=== PATIENT | male | born 1970 | race Caucasian/White ===

== ENCOUNTER 2019-12-26 13:58 | Inpatient (IN) | payer OTHER ==
[~2019-12-26] VITALS: Ht 177.8 cm; Wt 81.6 kg
[2019-12-26] MEDS ORDERED: ONDANSETRON HCL INJ 2MG/ML 2ML 2 MG/ML VIAL IV STA (14:26)
[2019-12-26] MEDS ORDERED: SODIUM CHLORIDE 0.9% 1000ML 1,000 ML IV STA (14:26)
[2019-12-26] MEDS ORDERED: KETOROLAC TROMETHAMINE 30 MG/ML VIAL IV STA (14:26)
[2019-12-26 14:51] LABS: BASOPHILS # (AUTO) 0.1 (0.0-0.1); BASOPHILS % 0.3 % (0.0-1.0); EOSINOPHILS % 0.1 % (0.0-6.0); HEMATOCRIT 46.5 % (38.2-49.6); HEMOGLOBIN 16.2 g/dL (14.0-18.0); LYMPHOCYTES # (AUTO) 1.6 (1.0-3.2); LYMPHOCYTES % 10.8 % (18.0-39.1); MEAN CORPUSCULAR HEMOGLOBIN 30.1 pg (28-32); MEAN CORPUSCULAR HGB CONC 34.8 g/dL (31-35); MEAN CORPUSCULAR VOLUME 86.4 fL (81-99); MONOCYTES # (AUTO) 0.8 (0.2-0.8); MONOCYTES % 5.8 % (4.4-11.3); NEUTROPHILS # (AUTO) 11.9 (2.1-6.9); NEUTROPHILS % 82.5 % (38.7-80.0); PLATELET COUNT 291 x10e3/uL (140-360); RED BLOOD COUNT 5.38 x10e6/uL (4.3-5.7); RED CELL DISTRIBUTION WIDTH 12.9 % (11.7-14.4)
[2019-12-26 15:04] LABS: CLARITY,URINE CLEAR (CLEAR); COLOR,URINE YELLOW (YELLOW); LEUKOCYTE ESTERASE ,URINE NEGATIVE (NEGATIVE); NITRITE,URINE NEGATIVE (NEGATIVE); PROTEIN,URINE DIPSTICK TRACE (NEGATIVE)
[2019-12-26 15:05] LABS: BILIRUBIN,URINE NEGATIVE (NEGATIVE); KETONES,URINE TRACE (NEGATIVE); URINE UROBILINOGEN 0.2 mg/dL (0.2 - 1)
[2019-12-26 15:08] LABS: ALANINE AMINOTRANSFERASE 57 IU/L (0-55); ALBUMIN 4.3 g/dL (3.5-5.0); ALBUMIN/GLOBULIN RATIO 1.3 (0.8-2.0); ALKALINE PHOSPHATASE 74 IU/L (40-150); ANION GAP 17.7 mmol/L (8-16); BLOOD UREA NITROGEN 18 mg/dL (7-26); BUN/CREATININE RATIO 15 (6-25); CALCIUM 9.3 mg/dL (8.4-10.2); CARBON DIOXIDE 21 mmol/L (22-29); CHLORIDE 101 mmol/L (98-107); CREATININE, SERUM 1.22 mg/dL (0.72-1.25); EST GLOMERULAR FILTRATION RATE > 60 ML/MIN (60-); GLUCOSE 122 mg/dL (74-118); POTASSIUM 3.7 mmol/L (3.5-5.1); SODIUM 136 mmol/L (136-145)
--- NOTE | 2019-12-26 15:15 | Diagnostic Imaging Report ---
EXAMINATION: CT of the abdomen and pelvis without contrast. TECHNIQUE: Helical CT images of the abdomen and pelvis were performed from the lung bases to the lesser trochanters. No intravenous contrast was given per renal stone protocol. Coronal and sagittal reformatted images were obtained.Dose modulation, iterative reconstruction, and/or weight based adjustment of the mA/kV was utilized to reduce the radiation dose to as low as reasonably achievable. COMPARISON: None. CLINICAL HISTORY:Flank pain, evaluate for stone DISCUSSION: ABSENCE OF INTRAVENOUS CONTRAST DECREASES SENSITIVITY FOR DETECTION OF FOCAL LESIONS AND VASCULAR PATHOLOGY. ABDOMEN/PELVIS: LOWER THORAX: Unremarkable. HEPATOBILIARY:No focal hepatic lesions. No biliary ductal dilation. The gallbladder is normal. SPLEEN: No splenomegaly. PANCREAS: No focal masses or ductal dilatation. ADRENALS: No adrenal nodules. KIDNEYS/URETERS: 6 mm calculus in the mid right ureter causing moderate hydronephrosis. Left kidney unremarkable. PELVIC ORGANS/BLADDER: The bladder is normal. PERITONEUM/RETROPERITONEUM: No free air or fluid. LYMPH NODES: No intra-abdominal,retroperitoneal, pelvic or inguinal lymphadenopathy. VESSELS: Limited evaluation. GI TRACT: No distention or wall thickening. Appendix is normal. BONES AND SOFT TISSUES: No bony destructive lesions. No soft tissue abnormalities. IMPRESSION: 6 mm calculus in the mid right ureter causing moderate hydronephrosis. Signed by: Dr. Federico Dooley M.D. on 12/26/2019 3:12 PM
[2019-12-26 15:26] LABS: BACTERIA,URINE FEW /HPF; EPITHELIAL CELLS,URINE FEW /LPF; RBC,URINE 21-50 /HPF (0-5); WBC,URINE (MAN) 21-50 /HPF (0-5)
[2019-12-26] MEDS: CEFTRIAXONE SOD 1 GM/NS 50 ML 50 ML IV SCH (16:14)
--- NOTE | 2019-12-26 16:19 | NUR ---
warm blanket provided for patient
[2019-12-26] MEDS: MORPHINE SULFATE 2 MG/ML SYR 1ML IV PRN ×3 (16:27→23:46)
--- OUTSIDE RECORDS SUMMARY | 2019-12-26 16:38 | XMS REPORT ---
[facility] Address Unknown Phone Unavailable Care Team Providers Care Business Support Liaison Name Role Phone Brandie GRAHAM Unavailable Unavailable Problems This patient has no known problems. Allergies, Adverse Reactions, Alerts This patient has no known allergies or adverse reactions. Medications This patient has no known medications. Results Test Description Test Time Test Comments Text Results Atomic Results Result Comments CT ABDOMEN/PELVIS WO 2019-12-26 15:04:00 [place] [address] Patient Name: MAXIME JACOB MR #: [id number] : 1970 Age/Sex: 49/M Req #: [id number] Adm Physician: Ordered by: KENDRA QUIROZ MORPHOLOGY TEACHER Report #: [id number] Location: ER Room/Bed: Procedure: [id number] CT/CT ABDOMEN/PELVIS WO Exam Date: 12/26/19 Exam Time: 1420 REPORT STATUS: Signed EXAMINATION: CT of the abdomen and pelvis without contr ast. TECHNIQUE: Helical CT images of the abdomen and pelvis were performed from the lung bases to the lesser trochanters. No intravenous contrast was given per renal stone protocol. Coronal and sagittal reformatted images were obtained.Dose modulation, iterative reconstruction, and/or weight based adjustment of the mA/kV was utilized to reduce the radiation dose to as low as reasonably achievable. COMPARISON: None. CLINICAL HISTORY:Flank pain, evaluate for stone DISCUSSION: ABSENCE OF INTRAVENOUS CONTRAST DECREASES SENSITIVITY FOR DETECTION OF FOCAL LESIONS AND VASCULAR PATHOLOGY. ABDOMEN/PELVIS: LOWER THORAX: Unremarkable. HEPATOBILIARY:No focal hepatic lesions. No biliary ductal dilation. The gallbladder is normal. SPLEEN: No splenomegaly. PANCREAS: No focal masses or ductal dilatation. ADRENALS: No adrenal nodules. KIDNEYS/URETERS: 6 mm calculus in the mid right ureter causing moderate hydronephrosis. Left kidney unremarkable. PELVIC ORGANS/BLADDER: The bladder is normal. PERITONEUM/RETROPERITONEUM: No free air or fluid. LYMPH NODES: No intra-abdominal,retroperitoneal, pelvic or inguinal lymphadenopathy. VESSELS: Limited evaluation. GI TRACT: No distention or wall thickening. Appendix is normal. BONES AND SOFT TISSUES: No bony destructive lesions. No soft tissue abnormalities. IMPRESSION: 6 mm calculus in the mid right ureter causing moderate hydronephrosis. Signed by: Dr. Tio Mast M.D. on 12/26/2019 3:12 PM Dictated By: TIO MAST MD 1512 Transcribed By: SANDY on 12/26/19 1512 COPY TO: KENDRA QUIROZ NP
[2019-12-26] MEDS: SODIUM CHLORIDE 0.9% 1000ML 1,000 ML IV SCH (18:00)
[2019-12-26] MEDS ORDERED: HYDRALAZINE HCL 20 MG/ML VIAL IV PRN (19:00)
[2019-12-26] MEDS ORDERED: ACETAMINOPHEN 325 MG TAB PO PRN (19:00)
--- NOTE | 2019-12-26 19:03 | NUR ---
report given to Kaylah NOLASCO
[2019-12-26] MEDS ORDERED: AMLODIPINE BESY10 MG PO (20:25)
[2019-12-26] MEDS ORDERED: LISINOPRIL10 MG PO (20:26)
[2019-12-26] MEDS: ONDANSETRON HCL INJ 2MG/ML 2ML 2 MG/ML VIAL IV PRN (20:41)
[2019-12-26 21:06] VITALS: BP 149/86
[2019-12-26] MEDS ORDERED: LORAZEPAM 1 MG TAB PO PRN (21:15)
[2019-12-26 21:22] VITALS: BP 149/86
[2019-12-26 21:29] VITALS: BP 149/86
[2019-12-26 21:32] VITALS: BP 149/86
--- NOTE | 2019-12-26 21:37 | NUR ---
PATIENT AND GIRLFRIEND STATE PATIENT IS A DAILY DRINKER HAVING ANYWHERE FROM 4-6 DRINKS EVERY NIGHT MINIMUM. CALLED DR. BIRD LIFE TEACHER FOR ORDER IN CASE OF WITHDRAWLS, ORDERED ATIVAN FOR PATIENT. WILL CONTINUE TO MONITOR.
[2019-12-27] VITALS (10 sets, daily range): BP systolic 117–138; BP diastolic 70–86
[2019-12-27] MEDS: SODIUM CHLORIDE 0.9% 1000ML 1,000 ML IV SCH ×2 (02:43→16:48)
[2019-12-27] MEDS: CEFTRIAXONE SOD 1 GM/NS 50 ML 50 ML IV SCH ×2 (04:14→15:47)
[2019-12-27 05:36] LABS: BASOPHILS # (AUTO) 0.1 (0.0-0.1); BASOPHILS % 0.6 % (0.0-1.0); EOSINOPHILS # (AUTO) 0.2 (0.0-0.4); EOSINOPHILS % 1.9 % (0.0-6.0); HEMATOCRIT 40.8 % (38.2-49.6); HEMOGLOBIN 14.1 g/dL (14.0-18.0); LYMPHOCYTES # (AUTO) 2.3 (1.0-3.2); LYMPHOCYTES % 27.7 % (18.0-39.1); MEAN CORPUSCULAR HGB CONC 34.6 g/dL (31-35); MEAN CORPUSCULAR VOLUME 86.8 fL (81-99); MONOCYTES % 11.4 % (4.4-11.3); NEUTROPHILS # (AUTO) 4.9 (2.1-6.9); PLATELET COUNT 242 x10e3/uL (140-360); RED CELL DISTRIBUTION WIDTH 12.8 % (11.7-14.4)
[2019-12-27 06:00] LABS: ALANINE AMINOTRANSFERASE 41 IU/L (0-55); ALBUMIN 3.5 g/dL (3.5-5.0); ALBUMIN/GLOBULIN RATIO 1.3 (0.8-2.0); ALKALINE PHOSPHATASE 62 IU/L (40-150); ANION GAP 14.7 mmol/L (8-16); BLOOD UREA NITROGEN 12 mg/dL (7-26); BUN/CREATININE RATIO 12 (6-25); CALCIUM 8.3 mg/dL (8.4-10.2); CARBON DIOXIDE 24 mmol/L (22-29); CHLORIDE 103 mmol/L (98-107); CREATININE, SERUM 1.03 mg/dL (0.72-1.25); EST GLOMERULAR FILTRATION RATE > 60 ML/MIN (60-); GLUCOSE 107 mg/dL (74-118); POTASSIUM 3.7 mmol/L (3.5-5.1); SODIUM 138 mmol/L (136-145)
--- NOTE | 2019-12-27 06:25 | Diagnostic Imaging Report ---
EXAM: ABDOMEN-1VIEW (KUB), DATE: 12/27/2019 INDICATION: 6 mm right ureteral stone. COMPARISON: None. Correlation with CT abdomen pelvis dated 12/26/2019. FINDINGS: LINES/TUBES: None BOWEL PATTERN: No evidence for obstruction. SOFT TISSUES: 6 mm calculus projected in expected location of the mid right ureter is unchanged in position. Phleboliths projected on the pelvis. LUNG BASES: Clear. BONES: No acute findings. IMPRESSION:6 mm calculus projected in expected location of the mid right ureter is unchanged in position. Signed by: Dr. Cherelle Bruce M.D. on 12/27/2019 6:23 AM
[2019-12-27] MEDS: LISINOPRIL 10 MG TAB PO SCH (08:11)
[2019-12-27] MEDS: MORPHINE SULFATE 2 MG/ML SYR 1ML IV PRN ×2 (12:53→19:18)
[2019-12-27] MEDS: ONDANSETRON HCL INJ 2MG/ML 2ML 2 MG/ML VIAL IV PRN ×2 (12:53→19:18)
[2019-12-27] MEDS: AMLODIPINE BESYLATE 10 MG TAB PO SCH (16:48)
--- NOTE | 2019-12-27 18:45 | NUR ---
Received patient from day nurse, patient is stable at this time. safety and fall precautions maintained as per hospital protocol: bed in lowest position and locked, needed items beside bed and patient instructed to call at all times for help.Urine straining ongoing, patient on fluids.
--- NOTE | 2019-12-27 21:34 | Consultation ---
DATE OF CONSULTATION: 12/27/2019 Urology Consultation. REASON FOR CONSULTATION: Obstructive uropathy. HISTORY OF PRESENT ILLNESS: Lincoln Palacios is a 49-year-old man with no previous urological history. He was noted to have microscopic hematuria back in September on an employment physical. He went to his physician and he underwent ultrasound examination, which revealed nothing. Urological consultation was not evaluated at that time. The patient had severe right-sided flank pain, reported to the emergency room where he was evaluated and found to have obstructive uropathy and was subsequently admitted. The patient denies any dysuria and denies any fever. PAST MEDICAL AND SURGICAL HISTORY: Hypertension. ALLERGIES: NONE KNOWN. CURRENT MEDICATIONS: Please refer to the MAR. SOCIAL HISTORY: The patient smokes one cigarette per day. Denies ethanol and drug use. 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 FAMILY HISTORY: Noncontributory to the active urological problems. REVIEW OF SYSTEMS: Discussed as above in history of present illness, past medical history otherwise negative for all systems. PHYSICAL EXAMINATION: GENERAL: Healthy-appearing 49-year-old man lying in bed, no apparent distress. VITAL SIGNS: He is currently afebrile. Vital signs are currently stable. ABDOMEN: Soft, nondistended, slightly tender in the right flank with mild right-sided costovertebral angle tenderness. Kidneys not palpable without hepatosplenomegaly. No obvious evidence of hernia. GENITOURINARY: Testes descended bilaterally. Testes and epididymides bilaterally palpably normal. The patient has a normal uncircumcised male phallus with a normal meatus without any lesion. Digital rectal examination is deferred at the present time. For the remaining physical examination systems, please refer to the history and physical on the chart. LABORATORY STUDIES: White blood cell count is 8450, it was as high as 14,420, hemoglobin 14.1, platelets 242,000. The patient's creatinine is 1.03. His calcium is low at 8.3. Urinalysis significant for 21 to 50 RBCs, 21 to 50 WBCs and few bacteria. CT scan of the abdomen and pelvis was done as a stone protocol, that reveals a 6 mm right mid ureteral stone with hydroureteronephrosis. ASSESSMENT: 1. Microscopic hematuria. 2. Right renal colic. 3. Leukocytosis that improved. 4. Hypocalcemia. 5. Possible urinary tract infection. 6. Right ureterolithiasis. 7. Right hydroureteronephrosis due to stone. PLAN: 1. Straining the urine. 2. Intravenous fluids. 3. Stone passage trial. 4. Should the patient fail to pass his stone intervention may be warranted. Should the patient's stone be low enough, a ureteroscopic intervention could be pursued rather than the stenting alone. Thank you much for involving us in care of your patient. We will be happy to follow along with you as well an outpatient. Chavo Sandhu MD [place]/MODL /[id number] cc: Chavo Sandhu MD
[2019-12-28] VITALS (8 sets, daily range): BP systolic 113–140; BP diastolic 61–93
[2019-12-28] MEDS: SODIUM CHLORIDE 0.9% 1000ML 1,000 ML IV SCH ×3 (00:06→16:30)
[2019-12-28] MEDS: MORPHINE SULFATE 2 MG/ML SYR 1ML IV PRN ×6 (00:07→23:52)
[2019-12-28 04:39] LABS: BASOPHILS # (AUTO) 0.1 (0.0-0.1); BASOPHILS % 0.8 % (0.0-1.0); EOSINOPHILS # (AUTO) 0.3 (0.0-0.4); EOSINOPHILS % 4.1 % (0.0-6.0); HEMATOCRIT 41.9 % (38.2-49.6); HEMOGLOBIN 14.2 g/dL (14.0-18.0); LYMPHOCYTES # (AUTO) 2.3 (1.0-3.2); MEAN CORPUSCULAR HEMOGLOBIN 30.1 pg (28-32); MEAN CORPUSCULAR HGB CONC 33.9 g/dL (31-35); MONOCYTES # (AUTO) 0.7 (0.2-0.8); MONOCYTES % 11.1 % (4.4-11.3); NEUTROPHILS # (AUTO) 3.3 (2.1-6.9); NEUTROPHILS % 49.4 % (38.7-80.0); PLATELET COUNT 241 x10e3/uL (140-360); RED BLOOD COUNT 4.71 x10e6/uL (4.3-5.7)
[2019-12-28] MEDS: CEFTRIAXONE SOD 1 GM/NS 50 ML 50 ML IV SCH ×2 (04:44→16:30)
[2019-12-28 04:57] LABS: ALANINE AMINOTRANSFERASE 38 IU/L (0-55); ALBUMIN 3.3 g/dL (3.5-5.0); ALBUMIN/GLOBULIN RATIO 1.2 (0.8-2.0); ALKALINE PHOSPHATASE 59 IU/L (40-150); ANION GAP 14.2 mmol/L (8-16); BLOOD UREA NITROGEN 11 mg/dL (7-26); BUN/CREATININE RATIO 12 (6-25); CALCIUM 8.1 mg/dL (8.4-10.2); CARBON DIOXIDE 22 mmol/L (22-29); CHLORIDE 108 mmol/L (98-107); CREATININE, SERUM 0.91 mg/dL (0.72-1.25); EST GLOMERULAR FILTRATION RATE > 60 ML/MIN (60-); GLUCOSE 106 mg/dL (74-118); POTASSIUM 4.2 mmol/L (3.5-5.1); SODIUM 140 mmol/L (136-145)
--- NOTE | 2019-12-28 07:00 | NUR ---
bedside shift report received pt in stable condition, updated on poc voiced understanding, denies pain at this time, ivf infusing to l ac 20g no ss of infiltration noted, no other co voiced call light in reach will continue to monitor
--- NOTE | 2019-12-28 07:25 | NUR ---
Patient endorsed to next shift for continuity of care.
--- NOTE | 2019-12-28 07:29 | Diagnostic Imaging Report ---
EXAM: ABDOMEN-1VIEW (KUB), DATE: 12/28/2019 INDICATION: Right ureteral calculus. COMPARISON: 12/27/2019 at 6:09 AM hours. FINDINGS: LINES/TUBES: None BOWEL PATTERN: No evidence for obstruction. Moderate volume of stool within the colon. SOFT TISSUES: The previously present mid to distal right ureteral calculus (previously projected just lateral inferior to the right L4 transverse process) is not clearly identified on today's exam possibly due to overlying bowel contents. Multiple phleboliths projected on the pelvis, unchanged. LUNG BASES: Clear. BONES: No acute findings. IMPRESSION: Previously present mid to distal right ureteral calculus is not identified on today's exam possibly due to overlying bowel contents or less likely interval passage. Consider a follow-up CT renal stone protocol. Signed by: Dr. Cherelle Bruce M.D. on 12/28/2019 7:26 AM
--- NOTE | 2019-12-28 07:34 | NUR ---
Order for straight cath cancelled by JUANITA through telephone order
[2019-12-28 12:02] LABS: CLARITY,URINE CLEAR (CLEAR); COLOR,URINE YELLOW (YELLOW); LEUKOCYTE ESTERASE ,URINE NEGATIVE (NEGATIVE); NITRITE,URINE NEGATIVE (NEGATIVE)
[2019-12-28 12:03] LABS: BILIRUBIN,URINE NEGATIVE (NEGATIVE); EPITHELIAL CELLS,URINE RARE /LPF; KETONES,URINE NEGATIVE (NEGATIVE); PROTEIN,URINE DIPSTICK NEGATIVE (NEGATIVE); RBC,URINE 0-5 /HPF (0-5); URINE UROBILINOGEN 0.2 mg/dL (0.2 - 1); WBC,URINE (MAN) 0-5 /HPF (0-5)
[2019-12-28] MEDS: LISINOPRIL 10 MG TAB PO SCH (12:05)
[2019-12-28] MEDS: ONDANSETRON HCL INJ 2MG/ML 2ML 2 MG/ML VIAL IV PRN ×2 (12:06→16:32)
[2019-12-28] MEDS: AMLODIPINE BESYLATE 10 MG TAB PO SCH (16:29)
--- NOTE | 2019-12-28 19:19 | NUR ---
WALKING ROUNDS PERFORMED, RECEIVED PT AMBULATING IN ROOM. PT IS AAOX3, RR EVEN AND NON-LABORED, ON ROOM AIR. NO S/SX OF DISTRESS NOTED. LEFT PT LAYING SEMI FOWLERS IN BED, BED IN LOW LOCKED POSITION, SIDE RAILS UPX2, CALL LIGHT AND PHONE WITHIN REACH.
[2019-12-29] VITALS: BP 127/84
[2019-12-29] MEDS: SODIUM CHLORIDE 0.9% 1000ML 1,000 ML IV SCH ×4 (01:50→22:47)
[2019-12-29] MEDS: CEFTRIAXONE SOD 1 GM/NS 50 ML 50 ML IV SCH ×2 (04:00→17:25)
[2019-12-29] MEDS: MORPHINE SULFATE 2 MG/ML SYR 1ML IV PRN ×4 (06:07→20:51)
--- NOTE | 2019-12-29 07:31 | NUR ---
PT ALERT RESP EVEN AND UNLABORED AT THIS TIME NO DISTRESS NOTED PT ABLE TO MAKE NEEDS KNOWN, CALL LIGHT IN REACH.
[2019-12-29 08:03] VITALS: BP 137/95
--- NOTE | 2019-12-29 08:52 | Diagnostic Imaging Report ---
Abdomen, one view Clinical indication: Right ureteral stone Comparison: Abdominal radiograph dated 12/28/2019, 12/27/[address] abdomen and pelvis dated 12/26/2019 Impression: There is an approximately 6 mm calcific density along the expected course of the right ureter at the L4 level. Signed by: José Luis Cobb MD on 12/29/2019 8:49 AM
[2019-12-29] MEDS: LISINOPRIL 10 MG TAB PO SCH (09:23)
[2019-12-29] MEDS: ONDANSETRON HCL INJ 2MG/ML 2ML 2 MG/ML VIAL IV PRN ×2 (09:38→14:36)
[2019-12-29 09:41] VITALS: BP 137/95
[2019-12-29 11:53] VITALS: BP 140/92
[2019-12-29 16:35] VITALS: BP 137/81
[2019-12-29] MEDS: AMLODIPINE BESYLATE 10 MG TAB PO SCH (17:25)
--- NOTE | 2019-12-29 19:00 | NUR ---
RECEIVED REPORT FROM DAY RN. PT RESTING IN BED- SEMI-FOWLERS. RESPIRATIONS EVEN AND UNLABORED. PT IS ALERT AND ORIENTED X3. CALL LIGHT WITHIN REACH. BED IN LOW POSITION.
--- NOTE | 2019-12-29 19:16 | NUR ---
walking rounds complete. pt stable at this time.
[2019-12-29 20:00] VITALS: BP 159/92
[2019-12-30] VITALS (7 sets, daily range): BP systolic 139–162; BP diastolic 87–103
[2019-12-30] MEDS: MORPHINE SULFATE 2 MG/ML SYR 1ML IV PRN ×3 (00:25→15:20)
[2019-12-30] MEDS: CEFTRIAXONE SOD 1 GM/NS 50 ML 50 ML IV SCH ×2 (04:40→17:11)
[2019-12-30 06:17] LABS: BASOPHILS # (AUTO) 0.1 (0.0-0.1); BASOPHILS % 0.7 % (0.0-1.0); EOSINOPHILS # (AUTO) 0.3 (0.0-0.4); EOSINOPHILS % 3.7 % (0.0-6.0); HEMATOCRIT 41.8 % (38.2-49.6); HEMOGLOBIN 14.1 g/dL (14.0-18.0); LYMPHOCYTES # (AUTO) 1.8 (1.0-3.2); LYMPHOCYTES % 25.6 % (18.0-39.1); MEAN CORPUSCULAR HEMOGLOBIN 29.8 pg (28-32); MEAN CORPUSCULAR HGB CONC 33.7 g/dL (31-35); MEAN CORPUSCULAR VOLUME 88.4 fL (81-99); MONOCYTES # (AUTO) 0.9 (0.2-0.8); MONOCYTES % 12.4 % (4.4-11.3); NEUTROPHILS # (AUTO) 3.9 (2.1-6.9); PLATELET COUNT 245 x10e3/uL (140-360); RED BLOOD COUNT 4.73 x10e6/uL (4.3-5.7); RED CELL DISTRIBUTION WIDTH 12.9 % (11.7-14.4)
[2019-12-30 06:40] LABS: ANION GAP 14.9 mmol/L (8-16); BLOOD UREA NITROGEN 10 mg/dL (7-26); BUN/CREATININE RATIO 10 (6-25); CALCIUM 8.6 mg/dL (8.4-10.2); CARBON DIOXIDE 26 mmol/L (22-29); CHLORIDE 103 mmol/L (98-107); CREATININE, SERUM 0.97 mg/dL (0.72-1.25); EST GLOMERULAR FILTRATION RATE > 60 ML/MIN (60-); GLUCOSE 109 mg/dL (74-118); POTASSIUM 3.9 mmol/L (3.5-5.1); SODIUM 140 mmol/L (136-145)
--- NOTE | 2019-12-30 07:10 | NUR ---
Received patient lying in bed with eyes open. Respiration even and unlabored without SOB. Call light in reach.
[2019-12-30] MEDS: SODIUM CHLORIDE 0.9% 1000ML 1,000 ML IV SCH ×2 (08:00→16:00)
--- NOTE | 2019-12-30 08:17 | NUR ---
Patient is transported for procedure at this time.
[2019-12-30] MEDS ORDERED: IOPAMIDOL 300MG/ML 50ML INFUS..BTL IV ONE (08:25)
[2019-12-30] MEDS ORDERED: B&O 60MG R/S 60 MG SUPP PR ONE (08:25)
[2019-12-30] MEDS: PHENAZOPYRIDINE HCL 100 MG TAB PO SCH ×3 (12:03→18:22)
[2019-12-30] MEDS: LISINOPRIL 10 MG TAB PO SCH (12:03)
[2019-12-30] MEDS: OXYBUTYNIN CHLORIDE 5 MG TAB PO SCH ×2 (12:03→18:21)
[2019-12-30] MEDS: ONDANSETRON HCL INJ 2MG/ML 2ML 2 MG/ML VIAL IV PRN ×2 (12:04→15:20)
[2019-12-30] MEDS: AMLODIPINE BESYLATE 10 MG TAB PO SCH (17:12)
[2019-12-30] MEDS ORDERED: PROPOFOL IV EMULSION 10 MG/ML 20 ML VIAL ONE (18:14)
[2019-12-30] MEDS ORDERED: DEXAMETHASONE SOD PHOS INJ 4 MG/ML VIAL ONE (18:14)
[2019-12-30] MEDS ORDERED: LIDOCAINE HCL 2% LOCAL INJ 5 ML SDV VIAL INJ ONE (18:14)
[2019-12-30] MEDS ORDERED: SEVOFLURANE INHAL SOLN 250 ML PEN BTL ONE (18:14)
[2019-12-30] MEDS ORDERED: ONDANSETRON HCL INJ 2MG/ML 2ML 2 MG/ML VIAL ONE (18:14)
[2019-12-30] MEDS ORDERED: MIDAZOLAM HCL 2 MG/2 ML VIAL ONE (18:42)
[2019-12-30] MEDS ORDERED: FENTANYL CITRATE/PF 100MCG/2 ML INJ ONE (18:42)
[2019-12-30] MEDS ORDERED: PYRIDIUM100 MG PO (19:12)
[2019-12-30] MEDS ORDERED: OXYBUTYNIN CHLOR5 MG PO (19:12)
[2019-12-30] MEDS ORDERED: TYLENOL # 31 EA PO (19:12)
[2019-12-30] MEDS ORDERED: ACETAMINOPHEN325 M1 PO (19:12)
--- NOTE | 2019-12-30 19:20 | NUR ---
Report given to night clerk auditor. Respiration even and unlabored without SOB. Call light in reach. Family at bedside.
--- NOTE | 2019-12-30 21:00 | NUR ---
PART OF PATIENT'S ACTUAL PHYSICAL MEDICAL PRESCRIPTION WAS LEFT IN CHART AND PATIENT ONLY RECEIVED A COPY OF RX. CALLED PATIENT TO INFORM THEM AND LET THEM KNOW THAT I WOULD CALL THE ORDER IN TO THEIR PHARMACY. CALLED [facility] IN [facility], AND SENT IN TYLENOL 3 AND OXYBUTIN FOR THE PATIENT.
--- NOTE | 2019-12-31 17:32 | Discharge Summary ---
PERTINENT HISTORY AND PHYSICAL FINDINGS AND CHIEF COMPLAINT: Abdominal pain. HISTORY OF PRESENT ILLNESS: Mr. Palacios was a 49-year-old male, who was admitted with complaints of right lower quadrant abdominal pain over the few weeks prior to admission. He denied hematuria, but stated that on his physical they found microscopic hematuria. He denies dysuria and fever on admission. PAST MEDICAL HISTORY: Hypertension. PAST SURGICAL HISTORY: None. FAMILY HISTORY: Diabetes in the mother and father. SOCIAL HISTORY: One cigarette per day. Daily alcohol. Denies illicit drugs. ALLERGIES: NO KNOWN DRUG ALLERGIES. ADMITTING DIAGNOSES: 1. Right kidney stone with hydronephrosis. 2. Urinary tract infection present on arrival. 3. Hypertension. DISCHARGE DIAGNOSES: 1. Right kidney stone with hydronephrosis, status post right ureteral stent. Right extracorporeal shock wave lithotripsy, cystoscopy, and retro. 2. Hypertension. The patient's urine culture final results showed no growth after 36-48 hours. On admission, WBC is 14.42, hemoglobin 16.2, hematocrit 46.5, platelets 291. Sodium 136, potassium 3.7, chloride 101, CO2 21, BUN 18, creatinine 1.22, GFR greater than 60, glucose 122, calcium 9.3, total protein 0.6, AST 23, ALT 57, alkaline phosphatase 74, total protein 7.6, albumin 4.3. Urinalysis did not show any nitrites or leukocyte esterases on either one. The first UA showed trace amount of protein, trace amount of ketones, 21-50 RBCs and WBCs. UA done on December [address] of the abdomen and pelvis done on December 26 showed a 6 mm calculus in the mid right ureter causing moderate hydronephrosis. The patient had serial KUB's for showing a 6 mm calculus projected in the expected location of the mid right ureter, unchanged in position. December 28 KUB showed previously present mid to distal right ureteral calculus not identified on the exam. KUB done on December 29 showed an approximately 6 mm calcific density along the expected course of the right ureter at the L4 level. The patient states he is doing better since the stone removal and stent placement. Still has some bladder pain. Denies any right flank pain. He does have considerable dysuria and a prescription for Pyridium 100 mg p.o. after meals was added, send patient home on Tylenol p.r.n. for fever, Tylenol No.3 prescription was written for pain by Dr. Sandhu with Urology. He also wrote a prescription for Ditropan 5 mg p.o. t.i.d. p.r.n. for overactive bladder. The patient is to continue regular diet. Activity level as tolerated. Case was discussed with the patient and his at the bedside. Follow up with PCP in 1-2 weeks. Follow up with Dr. Sandhu and strain his urine as directed. Also discharge labs today are within normal limits. Dictated by Denilson Sexton NP MD CINDY FaulknerP/KAMARIL /[id number]
--- NOTE | 2020-02-10 00:17 | Operative Report ---
DATE OF PROCEDURE: 12/30/2019 SURGEON: Chavo Sandhu MD PREOPERATIVE DIAGNOSES: 1. Right proximal ureterolithiasis. 2. Right hydronephrosis due to stone. 3. Microscopic hematuria. POSTOPERATIVE DIAGNOSES: 1. Right proximal ureterolithiasis. 2. Right hydronephrosis due to stone. 3. Microscopic hematuria. OPERATION PERFORMED: Note these were all staged procedures as part of multi-staged and multi-step process in managing the patient's urolithiasis. 1. Right-sided extracorporeal shock-wave lithotripsy (separate procedure performed for the ureterolithiasis). 2. Cystourethroscopy with bilateral ureteral catheterization and retrograde ureteropyelography (separate procedure performed for the microhematuria). 3. Interpretation of retrograde ureteropyelography. 4. Supervision of fluoroscopy, no radiologist present. 5. Cystourethroscopy with insertion of right indwelling ureteral stent (separate procedure performed to relieve the hydronephrosis). ANESTHESIA: General. COMPLICATIONS: None. CLINICAL SUMMARY: Please refer to the hospital chart. The patient understands the risks of bleeding, infection, injury to adjacent structures, need for further procedures and elected to proceed. OPERATIVE PROCEDURE IN DETAIL: Informed consent was verified, Lincoln Palacios was properly identified, taken to the operating room, placed on the lithotripsy table in supine position. Anesthesia was uneventfully begun. The patient's right proximal ureterolithiasis was localized with biplanar fluoroscopy. A total of 4000 shocks were delivered to the 6 mm stone that was far enough away from the kidney to allow 4000 shocks. Fragmentation was noted. The patient was then carefully and gently repositioned in dorsal lithotomy position with all pressure points well padded. His genitalia, abdomen, perineum were all shaved, prepared, and draped in usual sterile fashion. The cystoscope sheath with the visual obturator in place was atraumatically inserted into the patient's urethra, was guided unremarkably through the normal sphincteric region, through the prostate bed, which was significant for bilobar prostatic hypertrophy with kissing lateral lobes and a very elevated median bar causing visual obstruction at the bladder neck. We went to the patient's bladder where panendoscopy revealed a right paraureteral diverticulum. No suspicious mucosal lesions were identified . There were no stones noted. Ureteral catheter was used to cannulate each ureter and retrograde ureteropyelography was performed. With cystoscopic and fluoroscopic guidance, a right-sided indwelling ureteral stent was then placed. It was coiled the patient's kidney as well as the patient's bladder. The retaining suture was cut short. Interpretation of retrograde ureteropyelography contrast was instilled in retrograde fashion bilaterally. The left side was unremarkable. There were no tumors. There were no stones. There were no diverticula. There were no suspicious lesions. Right-sided exhibited hydronephrosis to the level of the stone was treated. The patient's bladder was drained. Cystoscope was withdrawn. Belladonna and opium suppository were placed revealing a 40 g prostate that was smooth, non-fluctuant without any nodules. The patient was then uneventfully reversed from anesthesia and taken to recovery room in stable condition. There were no complications. He tolerated the procedure well. Explicit postop instructions were given. Plans will be to return the patient to the operating room in several weeks to remove his stent, perform ureteroscopy and hopefully render the patient stent free and stone free. As a followup of this, we will plan on returning the patient to the office on an indefinite long-term basis to perform metabolic stone workup, stone prevention management as well as ongoing urological followup. MD SEDRICK López/AGATHA /[id number]
== END 2019-12-30 20:52 | disposition home or self-care (01) | DRG 661 ==
LOC: ER 13:58 → ERHOLD 16:17 → MED/SURG 20:04
PROVIDERS: ADMIT Internal Medicine; ATTEND Internal Medicine
PROC: 0T768DZ Dilation of Right Ureter with Intraluminal Device, Via Natural or Artificial Opening Endoscopic (ICD-10-PCS; 2019-12-30)
PROC: BT141ZZ Fluoroscopy of Kidneys, Ureters and Bladder using Low Osmolar Contrast (ICD-10-PCS; 2019-12-30)
PROC: 0TF6XZZ Fragmentation in Right Ureter, External Approach (ICD-10-PCS; principal; 2019-12-30 08:27)
DX: N13.6 Pyonephrosis (principal); I10 Essential (primary) hypertension; Z83.3 Family history of diabetes mellitus; Z72.0 Tobacco use; E83.51 Hypocalcemia; D72.829 Elevated white blood cell count, unspecified
CPT/HCPCS: 36415; 50590; 74018; 74176; 80048; 80053; 81001; 83735; 83970; 84550; 85025; 87086; 99284; C1758; C2617; J0696; J1100; J1885; J2001; J2250; J2270; J2405; J3010; J7030

== ENCOUNTER → 2020-01-29 | Outpatient (CLI) | payer OTHER ==
[~2020-01-29] MED LIST: ACETAMINOPHEN325 M1 PO; AMLODIPINE BESY10 MG PO; LISINOPRIL10 MG PO; OXYBUTYNIN CHLOR5 MG PO; PYRIDIUM100 MG PO; TYLENOL # 31 EA PO
--- NOTE | 2020-01-29 11:27 | Diagnostic Imaging Report ---
Exam: KUB - 2 views Indication: Renal calculus Comparison: KUB 12/27/2019 Findings: Right internal nephroureteral stent in place. No radiographically apparent renal calculi. The previously seen calcific density overlying the right ureter is no longer visible. Nonobstructive bowel gas pattern. No free air. No acute osseous injury. Phleboliths in the pelvis. The visualized lung bases are clear. Impression: Right internal nephroureteral stent in place. No radiographically apparent renal calculi. Signed by: Perla Barrera MD on 01/29/2020 11:24 AM
== END ==
LOC: RAD 10:03
PROVIDERS: ATTEND Urology
DX: N20.0 Calculus of kidney (principal)
CPT/HCPCS: 74018